=== PATIENT | male | born 1965 | race Caucasian/White ===

== ENCOUNTER → 2016-12-19 | Outpatient (CLI) | payer OTHER | LOC: KOH-I 08:29 | DX: M54.5 Low back pain (principal); M47.816 Spondylosis without myelopathy or radiculopathy, lumbar region | CPT/HCPCS: 72110 ==

== ENCOUNTER → 2020-11-30 | Outpatient (CLI) | payer BC ==
[~2020-11-30] MED LIST: ACTOS30 MG PO; BENZTROPINE MESY1 MG PO; DOXYCYCLINE HY100 MG PO; ECOTRIN325 MG PO; GLUCOPHAGE 500500 MG PO; HALDOL 5 MG TAB5 MG PO; IBUPROFEN800 MG PO; MOBIC15 MG PO; NEURONTIN300 MG PO; OMNICEF 300 MG300 MG PO; PROZAC10 MG PO; ZOCOR40 MG PO; ZYLOPRIM300 MG PO
== END ==
LOC: KOH-I 13:05
DX: M25.512 Pain in left shoulder (principal); M79.642 Pain in left hand; M25.532 Pain in left wrist; M25.562 Pain in left knee; M19.012 Primary osteoarthritis, left shoulder; M25.462 Effusion, left knee
CPT/HCPCS: 73030; 73090; 73110; 73130; 73564

== ENCOUNTER 2021-01-30 15:51 | Inpatient (IN) | payer BC ==
[~2021-01-30] VITALS: Ht 172.7 cm; Wt 117.9 kg
[~2021-01-30 15:51] MED LIST changes: -ACTOS30 MG PO; -BENZTROPINE MESY1 MG PO; -DOXYCYCLINE HY100 MG PO; -ECOTRIN325 MG PO; -GLUCOPHAGE 500500 MG PO; -HALDOL 5 MG TAB5 MG PO; -MOBIC15 MG PO; -NEURONTIN300 MG PO; -OMNICEF 300 MG300 MG PO; -PROZAC10 MG PO; -ZOCOR40 MG PO; -ZYLOPRIM300 MG PO
[2021-01-30 17:31] LABS: HEMOGLOBIN 12.1 gm/dl (14.0-17.5); RED BLOOD COUNT 3.81 M/UL (4.20-5.50); WHITE BLOOD COUNT 7.5 K/UL (4.5-11.0)
[2021-01-30 17:52] LABS: BUN/CREATININE RATIO 15 (0-10)
[2021-01-31 04:34] LABS: HEMOGLOBIN 10.8 gm/dl (14.0-17.5); RED BLOOD COUNT 3.44 M/UL (4.20-5.50)
[2021-01-31 05:04] LABS: BUN/CREATININE RATIO 15 (0-10)
[2021-01-31] MEDS ORDERED: ZYLOPRIM300 MG PO (10:00)
[2021-01-31] MEDS ORDERED: BENZTROPINE MESY1 MG PO (10:01)
[2021-01-31] MEDS ORDERED: PROZAC10 MG PO (10:01)
[2021-01-31] MEDS ORDERED: NEURONTIN300 MG PO (10:02)
[2021-01-31] MEDS ORDERED: GLUCOPHAGE 500500 MG PO (10:03)
[2021-01-31] MEDS ORDERED: HALDOL 5 MG TAB5 MG PO (10:03)
[2021-01-31] MEDS ORDERED: ZOCOR40 MG PO (10:04)
[2021-01-31] MEDS ORDERED: ACTOS30 MG PO (10:04)
[2021-01-31] MEDS ORDERED: MOBIC15 MG PO (10:04)
[2021-01-31] MEDS ORDERED: ECOTRIN325 MG PO (10:05)
[2021-02-01 05:32] LABS: HEMOGLOBIN 10.8 gm/dl (14.0-17.5); RED BLOOD COUNT 3.43 M/UL (4.20-5.50); WHITE BLOOD COUNT 5.8 K/UL (4.5-11.0)
[2021-02-01 06:16] LABS: BUN/CREATININE RATIO 15 (0-10)
[2021-02-01] MEDS ORDERED: DOXYCYCLINE HY100 MG PO (12:23)
[2021-02-01] MEDS ORDERED: OMNICEF 300 MG300 MG PO (12:23)
== END 2021-02-01 15:15 | disposition home or self-care (01) | DRG 193 ==
LOC: ER1 15:51 → CDU 21:17 → MED SURG 4 01-31 18:16
PROVIDERS: Emergency Medicine; Internal Medicine; ADMIT Family Medicine
DX: J18.9 Pneumonia, unspecified organism (principal); J96.01 Acute respiratory failure with hypoxia; E87.1 Hypo-osmolality and hyponatremia; Z20.822 Contact with and (suspected) exposure to COVID-19; I10 Essential (primary) hypertension; E11.9 Type 2 diabetes mellitus without complications; F32.9 Major depressive disorder, single episode, unspecified; K76.0 Fatty (change of) liver, not elsewhere classified; E87.70 Fluid overload, unspecified; Z79.4 Long term (current) use of insulin
CPT/HCPCS: 0241U; 36415; 36600; 71045; 80048; 80053; 81001; 82550; 82553; 82803; 82962; 83605; 83690; 83930; 83935; 84300; 84484; 85025; 85379; 85610; 85730; 87040; 87086; 93005; 94640; 94760; 96365; 96375; 99285; G0378; J0696; J1650; J7030; Q9967